=== PATIENT | male | born 1995 | race Caucasian/White ===

== ENCOUNTER 2016-12-24 20:28 | Emergency (ER) | payer BC ==
[~2016-12-24] VITALS: Ht 198.1 cm; Wt 127.2 kg
[~2016-12-24 20:28] MED LIST: FEXO1TAB58 PO
[2016-12-24 20:31] VITALS: Ht 198.1 cm; Wt 127.2 kg
--- NOTE | 2016-12-24 20:58 | EMERGENCY ROOM VISIT NOTE ---
ED Visit Note First contact with patient: 20:38 CHIEF COMPLAINT: Head injury HISTORY OF PRESENT ILLNESS: This 21-year-old male patient presented to the emergency department after receiving a head injury while playing rugby. He thinks that he collided with another player hitting the right forehead and his right cheek. There was no loss of consciousness. There has been no vomiting. The patient complains of feeling slightly spacey and emotional. The patient denies any significant headache or changes in vision. He denies any new neck pain. No other injuries. He is concerned because he has had numerous concussions in the past. REVIEW OF SYSTEMS: A review of systems was performed with positives and pertinent negatives listed in the history of present illness. All other systems were reviewed and are negative. ALLERGIES: No known drug allergies MEDICATIONS: Reviewed PMH: Asthma SOCIAL HISTORY: He does not use cigarettes or drink tobacco. He drinks alcohol on occasion. PHYSICAL EXAM: Vital Signs: Reviewed Nurse's notes, vital signs stable. GENERAL : 21-year-old male, in no acute distress, well-developed, well-nourished. NEURO : The patient is alert, oriented to person place and time, and coherent. Normal mini mental status exam. Negative Romberg and pronator drift. Cerebellar function intact. Normal heel to toe walking. HEAD: Slight abrasion noted to the right for head and inferior to the right eye.. EYES: Pupils are equal round and reactive to light and accommodation. EOMs are full. There is no swelling or discoloration of the tissue surrounding the eyes. EARS: External auditory canals clear without blood. NECK: Supple. There is no cervical spine tenderness. The patient does not have tenderness with movement of the neck. ED COURSE: I examined the patient. We discussed treatment options. We also thoroughly reviewed concussion precautions. The patient was discharged home in good condition ambulatory. DIAGNOSIS\discussion: Head injury Other etiologies considered were skull fracture, intracranial bleeding, facial fracture. Given his intact neurologic exam, mild symptoms and the fact that he did not lose consciousness, I had a low suspicion of fracture or bleed. I did not find imaging necessary. DISCHARGE INSTRUCTIONS: You have been treated in the Emergency Department for a Closed Head Injury. There were no abnormalities in your physical exam. Please call the concussion clinic for a follow-up appointment. A number has been provided. For pain control, you can use the following [id number] medicines (if >12 yo): - Regular strength (325mg/tab) Tylenol (acetaminophen) 2 tabs every 4-6 hours as needed. Do not exceed 12 tablets in a 24 hour period. Avoid taking more than 4 grams (4000 mg) of Tylenol per day. This includes any other sources of acetaminophen you may take on a regular basis. - Regular strength (200 mg/tab) Advil (ibuprofen) 1-2 tabs every 4-6 hours as needed. Do not exceed a dose of 3200 mg per day. You should relax in a quiet, dark place for the rest of the day. Avoid any possible triggers including: cigarette smoke, caffeine, nicotine, chocolate, wine, beer, loud noises or music, or bright lights. You should NOT return to athletic play until reevaluated. You should fully comply with their standard protocol regarding head injuries. Your Community Liaison OR Primary Care Provider will have the final say in your return to athletic play. This timeframe should be AT LEAST 1 week AFTER the date of last symptoms experienced! This is ESSENTIAL to allow for adequate brain healing time and for reduced risk of re-injury. Return to the Emergency Department if your current symptoms worsen despite treatment course outlined above, or if you develop any of the following symptoms : intractable pain despite aforementioned treatment course, visual disturbances , loss of vision, unilateral weakness or facial drooping, slurring of speech, loss of coordination, or loss of consciousness.
[2016-12-24 21:02] VITALS: BP 124/64; PULSE 77; TEMP 36.9; O2SAT 97
== END 2016-12-24 21:10 | disposition home or self-care (01) ==
LOC: C.EDB 20:31 → C.EDD 21:10
DX: S09.90XA Unspecified injury of head, initial encounter (principal); S00.81XA Abrasion of other part of head, initial encounter; W50.0XXA Accidental hit or strike by another person, initial encounter; Y93.63 Activity, rugby

== ENCOUNTER → 2017-01-25 | Outpatient (CLI) | payer BC | END | disposition home or self-care (01) | LOC: C.RDSM 13:50 | PROVIDERS: ATTEND Family Medicine | DX: M21.70 Unequal limb length (acquired), unspecified site (principal) ==

== ENCOUNTER 2021-06-12 15:44 | Inpatient (IN) ==
[2021-06-12] MEDS ORDERED: Heparin IV Adult Wt-Based Standard WITH Bolus Protocol IV STA (15:45)
--- NOTE | 2021-06-12 15:53 | Emergency Department Note ---
Impression & Plan Bilateral pulmonary embolism, Breath shortness ED Provider Note NAME: AGUSTIN STAPLES AGE: 26 SEX: M : 1995 ARRIVES VIA: Ambulance INFORMANT: Patient ED PROVIDER(S): Colin Nelson DO CHIEF COMPLAINT: Shortness of breath HPI: Patient is a 26-year-old male who presents to the ER for shortness of breath. He was seen evaluated at [facility]. He had a CT angio of the chest following an echo which showed bilateral PEs with echo showing right heart strain per Dr. Turner. Referred him over. He discussed with the hospitalist for admission. Patient notes has been feeling short of breath and rundown for the past 3 weeks. He went on a skiing trip about 2 weeks ago and symptoms have gotten worse. Denies any dysuria urgency or frequency. No other exacerbating or remitting factors. ROS: See above HPI for pertinent positives & negatives. A total of 10 systems reviewed and were otherwise negative. PAST MEDICAL HISTORY:See Below PAST SURGICAL HISTORY:See Below FAMILY HISTORY:See Below SOCIAL HISTORY:See Below HOME MEDICATIONS:See Below ALLERGIES:See Below VITALS:See Below PHYSICAL EXAMINATION: GENERAL: Sitting up in bed, alert, well appearing, well nourished, no distress, non-toxic EYE EXAM: normal conjunctiva. OROPHARYNX: no exudate, no erythema, lips, buccal mucosa, and tongue normal and mucous membranes are moist NECK: supple, no nuchal rigidity, no adenopathy, non-tender LUNGS: Clear to auscultation. Normal chest wall mechanics HEART: no murmurs, S1 normal and S2 normal ABDOMEN: abdomen soft, non-tender, normo-active bowel sounds, no masses, no rebound or guarding. UPPER EXTREMITIES: upper extremities are grossly normal. LOWER EXTREMITIES: No pitting edema. NEURO EXAM: Normal sensorium, cranial nerves II-XII grossly intact, normal speech, no gross weakness of arms, no gross weakness of legs. MEDICAL DECISION MAKING: Patient is a 26-year-old male who presents ER for above-stated complaint. IV was established blood work was obtained. CT angio of the chest is performed as an outpatient that showed bilateral PEs. Echo showed right heart strain all per report from Dr. Turner. Recommends no TPA at this time and heparin. No significant leukocytosis or anemia. He denies all bleeding risk factors. This discussed at length. He was ordered heparin bolus and drip. Labs showed no significant leukocytosis or anemia. INR was unremarkable. BMP with a slightly low CO2 of 20. Chloride slightly up at 108. Troponin was elevated 0.05. Lipase was unremarkable. Will defer to the hospitalist team as well and supervisor histology for any additional treatments. Triage Nursing notes reviewed. Limited review of prior medical records performed Vital Signs: reviewed and remarkable for no significant abnormalities Differential diagnosis: Differential diagnoses includes but is not limited to acute coronary syndrome, myocardial infarction, pericarditis, pulmonary embolus, aortic dissection, pneumonia, pneumothorax, musculoskeletal, shingles, esophageal. ER treatment provided: See below Diagnostics interpreted by me: ECG: Sinus rhythm rate of 90 Normal axis T wave inversion in the inferior leads as well as the septal anterior and lateral ST depressions in the inferior Cardiac Monitoring: An order was placed for continuous cardiac monitoring. The monitor shows a rate of 80 with sinus rhythm. Laboratory studies: As stated above and show below. Imaging studies: See below Consultation(s): D/w Dr. Turner as stated above Discussed with Yanelis who is aware the patient and saw the patient immediately upon arrival Procedures: none Critical Care: I have personally spent 32 minutes of critical care time in the direct management of this patient. This includes bedside care, interpretation of diagnostic studies, and testing, discussion with consultants, patient, and family members, and other required patient management activities. This 32 minutes is in excess of all separately billable procedures. Past Med/Surg History Medical History (Updated 06/12/21 @ 16:58 by Yanelis Feldman PA-C) Left leg cellulitis ARNOLDO on CPAP Surgical History (Updated 06/12/21 @ 16:16 by Yanelis Feldman PA-C) History of dental surgery wisdom teeth, jaw surg History of elbow surgery Family History (Updated 06/12/21 @ 16:15 by Yanelis Feldman PA-C) Grandfather Coronary heart disease Hx of CABG Denies family history of Clotting disorder Social History (Updated 06/12/21 @ 16:55 by Yanelis Feldman PA-C) Smoking Status: Never smoker Hx Alcohol Use: Yes Alcohol type: beer Alcohol Intake Frequency: 2-4 x/Month Hx Substance Use: No Preferred Language: Tunisian Communication Ability: Effective Director Community Organization Required: No Beliefs That Will Affect Care: None marital status: Current Living Situation: Alone current occupational status: employed 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 Feels Safe at Home: Yes Assistive Devices: None Allergies Allergies Allergy/AdvReac Type Severity Reaction Status Date / Time Pertussis Vaccines Allergy Unknown Unknown Verified 06/12/21 16:16 Home Meds Home Medications Medication Instructions Recorded Confirmed No Known Home Medications 06/12/21 06/12/21 Results & Data (ED) Vital Signs Vital Signs - 24 hr 06/12/21 15:54 Pulse Rate 82 Respiratory Rate 22 Blood Pressure 124/71 Blood Pressure Mean 88 Pulse Oximetry 97 Oxygen Delivery Method Room Air Sepsis Recent Fever Within 48 Hours No Sepsis New/Unexplained Change in Mental Status No Sepsis Action Taken by Nursing No Action Required Laboratory Data Result diagrams: 06/12/21 16:04 06/12/21 16:59 Lab Results 06/12/21 06/12/21 06/12/21 Range/Units 16:04 16:04 16:04 WBC 5.79 (4.8-10.8) K/uL RBC 5.30 (4.7-6.1) M/uL Hgb 16.3 (14.0-18.0) g/dL Hct 47.5 (42-52) % MCV 89.6 (80-100) fL MCH 30.8 (25-34) pg MCHC 34.3 (32-36) g/dL RDW Std Deviation 46.2 (36.4-46.3) fL RDW Coeff of Patricia 14.1 (11.5-14.5) % Plt Count 119 L (130-400) K/uL MPV 10.4 (7.4-10.4) fL Immature Gran % (Auto) 0.2 % Neut % (Auto) 46.3 % Lymph % (Auto) 32.1 % Summers % (Auto) 16.8 % Eos % (Auto) 4.1 % Baso % (Auto) 0.5 % Neut # (Auto) 2.68 (1.4-6.5) K/uL Lymph # (Auto) 1.86 (1.2-3.4) K/uL Summers # (Auto) 0.97 H (0.11-0.59) K/uL Eos # (Auto) 0.24 (0-0.5) K/uL Baso # (Auto) 0.03 (0-0.2) K/uL Immature Gran # (Auto) 0.01 (0.00-0.02) K/uL PT 11.4 (9.0-12.0) Seconds INR 1.1 (0.9-1.1) APTT (21.0-31.0) Seconds PTT Ratio Sodium 137 (136-145) mmol/L Potassium TNP Chloride 108 H (98-107) mmol/L Carbon Dioxide 20 L (21-32) mmol/L Anion Gap 9 (3-11) BUN 18 (6-23) mg/dl Creatinine 1.29 (0.6-1.4) mg/dl Est Cr Clr Drug Dosing 137.9 ml/min Est GFR ( Amer) 87.5 ml/min Est GFR (Non-Af Amer) 75.5 ml/min BUN/Creatinine Ratio 14.0 (10-20) Glucose 105 H (70-99(Fasting)) mg/dl Calcium 9.0 (8.5-10.1) mg/dl Total Bilirubin 0.5 (0.2-1.0) mg/dl AST TNP ALT 22 (7-52) U/L Alkaline Phosphatase 67 (34-104) U/L Troponin I 0.05 H* (0-0.04) ng/ml Total Protein 6.7 (6.0-8.3) gm/dl Albumin 4.0 (3.4-5.0) gm/dl Globulin 2.7 (2.5-4.0) gm/dl Albumin/Globulin Ratio 1.5 (0.9-2) Lipase 15 (11-82) U/L // Range/Units 16:04 WBC (4.8-10.8) K/uL RBC (4.7-6.1) M/uL Hgb (14.0-18.0) g/dL Hct (42-52) % MCV (80-100) fL MCH (25-34) pg MCHC (32-36) g/dL RDW Std Deviation (36.4-46.3) fL RDW Coeff of Patricia (11.5-14.5) % Plt Count (130-400) K/uL MPV (7.4-10.4) fL Immature Gran % (Auto) % Neut % (Auto) % Lymph % (Auto) % Summers % (Auto) % Eos % (Auto) % Baso % (Auto) % Neut # (Auto) (1.4-6.5) K/uL Lymph # (Auto) (1.2-3.4) K/uL Summers # (Auto) (0.11-0.59) K/uL Eos # (Auto) (0-0.5) K/uL Baso # (Auto) (0-0.2) K/uL Immature Gran # (Auto) (0.00-0.02) K/uL PT (9.0-12.0) Seconds INR (0.9-1.1) APTT 29.6 (21.0-31.0) Seconds PTT Ratio 1.1 Sodium (136-145) mmol/L Potassium Chloride (98-107) mmol/L Carbon Dioxide (21-32) mmol/L Anion Gap (3-11) BUN (6-23) mg/dl Creatinine (0.6-1.4) mg/dl Est Cr Clr Drug Dosing ml/min Est GFR ( Amer) ml/min Est GFR (Non-Af Amer) ml/min BUN/Creatinine Ratio (10-20) Glucose (70-99(Fasting)) mg/dl Calcium (8.5-10.1) mg/dl Total Bilirubin (0.2-1.0) mg/dl AST ALT (7-52) U/L Alkaline Phosphatase (34-104) U/L Troponin I (0-0.04) ng/ml Total Protein (6.0-8.3) gm/dl Albumin (3.4-5.0) gm/dl Globulin (2.5-4.0) gm/dl Albumin/Globulin Ratio (0.9-2) Lipase (11-82) U/L Administered Medications Heparin Sodium/Dextrose (Heparin Sodium/Dextrose) 25,000 units in 500 mls @ 41 mls/hr IV .[id number] [facility]; Protocol Stop: 07/12/21 15:59 Last Admin: 06/12/21 16:45 Dose: 2,050 units/hr, 41 mls/hr Documented by: [id number] Cosigned by: [id number] Discontinued Medications Heparin Sodium (Porcine) (Heparin Sod (Porcine) 1000 Unit/Ml) 1 units IV NOW ONE Stop: 06/12/21 16:01 Last Admin: 06/12/21 16:44 Dose: 5,000 units Documented by: [id number] Cosigned by: [id number] Discharge Plan Visit Data Chief Complaint: Shortness of Breath/Dyspnea Stated Complaint: SOB/PEs ED Provider: Colin Nelson Discharge Problem: Bilateral pulmonary embolism, Breath shortness Discharge Instructions Interventions: ED Discharge Assessment Last Done: 06/12/21 18:35
[2021-06-12] MEDS ORDERED: HEPARIN SOD (PORCINE) 1000 UNIT/ML IV ONE (16:00)
[2021-06-12] MEDS ORDERED: Heparin IV Adult Wt-Based Standard WITH Bolus Protocol IV SCH (16:15)
[2021-06-12 16:17] LABS: Basophils # (auto) 0.03 K/uL (0-0.2); Basophils % (auto) 0.5 %; Eosinophils # (auto) 0.24 K/uL (0-0.5); Eosinophils % (auto) 4.1 %; Hematocrit (blood only) 47.5 % (42-52); Hemoglobin 16.3 g/dL (14.0-18.0); Immature Granulocytes # (auto) 0.01 K/uL (0.00-0.02); Immature Granulocytes % (auto) 0.2 %; Lymphocytes # (auto) 1.86 K/uL (1.2-3.4); Lymphocytes % (auto) 32.1 %; Mean Corpuscular Hemoglobin 30.8 pg (25-34); Mean Corpuscular Hgb Conc 34.3 g/dL (32-36); Mean Corpuscular Volume 89.6 fL (80-100); Mean Platelet Volume 10.4 fL (7.4-10.4); Monocytes # (auto) 0.97 K/uL (0.11-0.59); Monocytes % (auto) 16.8 %; Neutrophils # (auto) 2.68 K/uL (1.4-6.5); Neutrophils % (auto) 46.3 %; Platelet Count 119 K/uL (130-400); RDW Coefficient of Variation 14.1 % (11.5-14.5); RDW Standard Deviation 46.2 fL (36.4-46.3); White Blood Count 5.79 K/uL (4.8-10.8)
--- NOTE | 2021-06-12 16:19 | History & Physical Report ---
Date of Service June 12, 2021 Assessment & Plan (1) Bilateral pulmonary embolism: (2) Elevated troponin: (3) ARNOLDO on CPAP: Plan: This is a 26-year-old male who has significant past medical history for mild ARNOLDO recently started on CPAP who presents to ED at the referral of cardiology due to newly diagnosed acute bilateral PEs with right heart strain. Bilateral Pulmonary Embolism Severe Pulmonary HTN Right Heart Strain Elevated troponin admit to PCU IV Heparin bolus and gtt, transition to oral anticoagulation when able based off insurance hypercoag panel ordered Echocardiogram done as outpt: EF 55 to 59%, right ventricular cavity is severely dilated, severe diffuse right ventricular hypokinesis with sparing of the right ventricular apex, dilated IVC with reduced collapsibility, severe pulmonary hypertension, left ventricular cavity is D-shaped due to increased consistent with right ventricular pressure/volume overload, severe tricuspid regurgitation, PASP 70 to 75 mmHg Cycle troponins, repeat ekg b/l venous dopplers ordered Cardiology Dr. Beard recommends repeat echocardiogram and EKG in 1 month for comparison Thrombocytopenia plt 119, will need to monitor closely while on heparin ARNOLDO on CPAP cpap at HS DVT ppx: IV heparin Dispo:PCU PCP: Tania Mabry FULL CODE Pt was seen and examined in collaboration with Dr. Park, please see addendum History of Present Illness Chief Complaint: Referred by cardiology due to acute PE Primary Care Provider: Rhea Mabry This is a 26-year-old male who has significant past medical history for mild ARNOLDO recently started on CPAP who presents to ED at the referral of cardiology due to newly diagnosed acute bilateral PEs with right heart strain. Of significance patient was seen and evaluated by his PCP today due to progressive dyspnea on exertion. He was found to have abnormal EKG and was referred over to cardiology for an acute appointment. He recently was in [facility] approximately 2 weeks ago for a ski trip. He states it was approximately 6 hours away. Since returning from trip he had noted progressive dyspnea with exertion. Over the last 3 days he has noticed significant shortness of breath even with minimal exertion. 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 Given his recent travel and EKG findings arrangements were made for patient undergo a stat CTA as well as echocardiogram. CT revealed large mom multiple occlusive near occlusive bilateral segmental and subsegmental pulmonary emboli with evidence of right heart strain. Echocardiogram in cardiology office revealed severe right ventricular chamber enlargement and severe right ventricular hypokinesis with sparing of the right ventricular apex. Severe tricuspid regurg is present. There was also flattening of interventricular septum with D-shaped septum consistent with right ventricular pressure overload. Severe pulmonary hypertension is present with estimated pulmonary pressure of 70 mmHg. In ED he states he has had SOB on going for the last 3-4 weeks even before his ski trip. He feels it started before that. Sx have been worsening the past 3 days. He states normally when skiing he has not difficulty but recently was significantly SOB. He associated it to being out of shape. He denies any recent illness. He did have nausea, lightheaded/dizzy, Post nasal drip and mild nonproductive cough the past 3 days which is what prompted him to seek PCP. He also complains of being fatigued. He denies f/c/s, syncope, chest pain, hemoptysis, Emesis, diarrhea, melena or change in urination. He denies any prior history of DVT.He denies any family history of clotting disorders. He denies any issuse with bleeding. Grandfather had bypass surgery. Allergies Allergy/AdvReac Type Severity Reaction Status Date / Time Pertussis Vaccines Allergy Unknown Unknown Verified 06/12/21 16:16 Home Medications Medication Instructions Recorded Confirmed Type No Known Home Medications 06/12/21 06/12/21 History Past Med/Surg History Medical History Left leg cellulitis ARNOLDO on CPAP Surgical History History of dental surgery wisdom teeth, jaw surg History of elbow surgery Family History Grandfather Coronary heart disease Hx of CABG Denies family history of Clotting disorder Social History Smoking Status: Never smoker Hx Alcohol Use: Yes Alcohol type: beer Alcohol Intake Frequency: 2-4 x/Month Hx Substance Use: No Preferred Language: Chinese Communication Ability: Effective Satellite Television Installer Required: No Beliefs That Will Affect Care: None marital status: Current Living Situation: Alone current occupational status: employed 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 Normal insp/exp effort, no accessory muscle use Cardiovascular: RRR, no murmur, no edema Vessels: no JVD or carotid bruit Chest: normal inspection of chest Abdomen: normal bowel sounds, soft, nontender, no hepatosplenomegaly Musculoskeletal: no cyanosis or clubbing, extremities motor strength 5/5 Skin: no rashes, warm and dry normal turgor Neurologic: PERRL, EOMI, accommodation nl, no face palsy, no dysarthria CN's II-XI intact bilaterally and moves all extremities Psychiatric: A+Ox3, euthymic affect Lymphatic: no cervical or axillary lymphadenopathy : deferred Results & Data Results & Data ([facility]) Vital Signs (Past 12 Hours) Vital Signs Pulse Resp BP Pulse Ox 82 22 124/71 97 06/12/21 15:54 06/12/21 15:54 06/12/21 15:54 06/12/21 15:54 Diagnostic Findings Echo: Dictated by Dr. Beard in [facility] The patient's echocardiogram reveals severe right ventricular chamber enlargement and severe right ventricular hypokinesis with sparing of the right ventricular apex. Severe tricuspid regurgitation is present. There is flattening of the interventricular septum with D-shaped septum consistent with right ventricular pressure overload state. CTA Chest Outpt [facility] IMPRESSIONIMPRESSION1. Multiple large occlusive and near occlusive bilateral segmental and subsegmental pulmonary emboli.2. Straightening of the interventricular septum suggestive of right heart strain. Medications Administered Home Medications Medication Instructions Recorded Confirmed No Known Home Medications 06/12/21 06/12/21 Medication List Heparin Sodium/Dextrose (Heparin Sodium/Dextrose) 25,000 units in 500 mls @ 41 mls/hr IV .[id number] [facility]; Protocol Stop: 07/12/21 15:59 Last Admin: 06/12/21 16:45 Dose: 2,050 units/hr, 41 mls/hr Documented by: [id number] Cosigned by: [id number] Discontinued Medications Heparin Sodium (Porcine) (Heparin Sod (Porcine) 1000 Unit/Ml) 1 units IV NOW ONE Stop: 06/12/21 16:01 Last Admin: 06/12/21 16:44 Dose: 5,000 units Documented by: [id number] Cosigned by: [id number] ECG Rhythm: normal sinus Findings: + T-wave inversion (inferior, septal, lateral) COVID-19 Results Results COVID-19 Adm Lab Results: RBC 5.30 M/uL (4.7-6.1) 06/12/21 WBC 5.79 K/uL (4.8-10.8) 06/12/21 Hgb 16.3 g/dL (14.0-18.0) 06/12/21 Hct 47.5 % (42-52) 06/12/21 Plt Count 119 K/uL (130-400) L 06/12/21 Neutrophils (%) (Auto) 46.3 % 06/12/21 Lymphocytes (%) (Auto) 32.1 % 06/12/21 Monocytes # (Auto) 0.97 K/uL (0.11-0.59) H 06/12/21 Eosinophils # (Auto) 0.24 K/uL (0-0.5) 06/12/21 Immature Granulocyte % (Auto) 0.2 % 06/12/21 Neutrophils # (Auto) 2.68 K/uL (1.4-6.5) 06/12/21 Lymphocytes # (Auto) 1.86 K/uL (1.2-3.4) 06/12/21 Monocytes # (Auto) 0.97 K/uL (0.11-0.59) H 06/12/21 Eosinophils # (Auto) 0.24 K/uL (0-0.5) 06/12/21 Basophils # (Auto) 0.03 K/uL (0-0.2) 06/12/21 Immature Granulocyte # (Auto) 0.01 K/uL (0.00-0.02) 06/12/21 Na 137 mmol/L (136-145) 06/12/21 K 4.1 mmol/L (3.5-5.1) 06/12/21 Cl 108 mmol/L (98-107) H 06/12/21 CO2 20 mmol/L (21-32) L 06/12/21 Anion Gap 9 (3-11) 06/12/21 BUN 18 mg/dl (6-23) 06/12/21 Creatinine 1.29 mg/dl (0.6-1.4) 06/12/21 BUN/Creatinine Ratio 14.0 (10-20) 06/12/21 Glucose Level 105 mg/dl (70-99(Fasting)) H 06/12/21 Ca 9.0 mg/dl (8.5-10.1) 06/12/21 Total Bilirubin 0.5 mg/dl (0.2-1.0) 06/12/21 AST/SGOT 26 U/L (13-39) 06/12/21 ALT/SGPT 22 U/L (7-52) 06/12/21 Alkaline Phosphatase 67 U/L (34-104) 06/12/21 Total Protein 6.7 gm/dl (6.0-8.3) 06/12/21 Albumin 4.0 gm/dl (3.4-5.0) 06/12/21 Globulin 2.7 gm/dl (2.5-4.0) 06/12/21 Albumin/Globulin Ratio 1.5 (0.9-2) 06/12/21 Troponin I 0.05 ng/ml (0-0.04) H* 06/12/21 PTT 29.6 Seconds (21.0-31.0) 06/12/21 INR 1.1 (0.9-1.1) 06/12/21 SARS-CoV-2, RNA, NAAT NEGATIVE (NEGATIVE) 06/12/21 Code Status & VTE Plan Code Status FULL CODE VTE Prophylaxis Plan VTE Prophylaxis will be ordered: No Supervising Physician Co-Signing Physician Notes Patient is a 26-year-old male with history of obstructive sleep apnea on CPAP and no other significant medical history who was evaluated by cardiology today and was diagnosed to have acute bilateral pulmonary embolism with right heart strain presents to ED for further evaluation. Patient admits to having dyspnea on exertion and fatigue which has been gradually worsening over the past 3 days. Patient admits to having a trip to [facility] 2 weeks ago. Patient had CTA and echocardiogram as outpatient which was suggestive of multiple occlusion to near occlusive bilateral segmental and subsegmental pulmonary emboli with evidence of right heart strain. Please review HPI for complete details of presentation.) History of thrombocytopenia 119K, glucose 105, troponin 0 0.05. On exam patient is obese, no apparent distress, normocephalic atraumatic, EOMI, normal breath sounds, clear to auscultation, S1-S2, no murmur, no peripheral edema, abdomen soft, nontender, normal bowel sounds, alert, awake, oriented, grossly no focal deficits. Patient is admitted for management of acute bilateral embolism. Severe pulmonary hypertension with right heart strain noted. Agree with starting on IV heparin. Hypercoagulable work-up ordered. Trend cardiac enzymes and repeat EKG in the morning. Check venous Dopplers to rule out DVT. Monitor for any bleeding issues. Continue CPAP for obstructive sleep apnea. Needs follow-up with cardiology upon discharge with repeat echocardiogram in 1 month. Currently saturating well on room air. I personally reviewed the record. Patient is interviewed and examined at bedside. Patient's care is coordinated with Yanelis Feldman PA-C. Please refer to the documentation above for details of patient's presentation and for discussion of other issues.
[2021-06-12 16:26] LABS: INR 1.1 (0.9-1.1); Prothrombin Time 11.4 Seconds (9.0-12.0)
[2021-06-12 16:42] LABS: Alanine Aminotransferase 22 U/L (7-52); Albumin Globulin Ratio 1.5 (0.9-2); Alkaline Phosphatase 67 U/L (34-104); Anion Gap 9 (3-11); Bilirubin,Total 0.5 mg/dl (0.2-1.0); Blood Urea Nitrogen 18 mg/dl (6-23); Carbon Dioxide 20 mmol/L (21-32); Chloride 108 mmol/L (98-107); Creatinine Clr Calc Pharmacy 137.9 ml/min; Est GFR (African American) 87.5 ml/min; Est GFR (Non-African American) 75.5 ml/min; Globulin 2.7 gm/dl (2.5-4.0); Glucose 105 mg/dl (70-99(Fasting)); Lipase 15 U/L (11-82); Sodium 137 mmol/L (136-145); Total Protein 6.7 gm/dl (6.0-8.3); Troponin I 0.05 ng/ml (0-0.04)
[2021-06-12] MEDS: HEPARIN SODIUM/DEXTROSE 25,000 UNITS/500 ML BAG IV SCH (16:45)
[2021-06-12 17:02] LABS: Partial Thromboplastin Ratio 1.1; Partial Thromboplastin Time 29.6 Seconds (21.0-31.0)
[2021-06-12 17:51] LABS: Potassium 4.1 mmol/L (3.5-5.1)
--- NOTE | 2021-06-12 21:04 | Ultrasound Report ---
US venous doppler LE BI CLINICAL HISTORY: r/o dvt COMPARISON: None available at the time of this dictation. TECHNIQUE: Bilateral lower extremity real-time compression venous ultrasound with Color Doppler imagi ng. Utilizing real-time ultrasonic imaging multiple real time high-resolution ultrasonic images with comp ression and noncompression maneuvers of the deep venous system in addition to color doppler imaging w ere performed from the common femoral vein through the proximal calf veins. FINDINGS: There is a deep venous thrombus in the left popliteal vein. No additional thrombus is seen in the [place] ous system. Impression: No evidence of deep venous thrombus. ACT 112: Negative or not required by law. Electronically signed by: Aldo Toscano M.D. 06/12/2021 9:03 PM
[2021-06-12] MEDS ORDERED: POLYETHYLENE (MIRALAX) 17 GM PACK PO PRN (21:42)
[2021-06-12] MEDS ORDERED: ONDANSETRON INJ 2 MG/ML 2 ML VIAL IV PRN (21:42)
[2021-06-12] MEDS ORDERED: MAGNESIUM HYDROXIDE SUSP 30 ML UDC PO PRN (21:42)
[2021-06-12] MEDS ORDERED: ALBUTEROL HFA 8 GM INHALER INH PRN (21:42)
[2021-06-12] MEDS ORDERED: ACETAMINOPHEN 325 MG TAB PO PRN (21:42)
[2021-06-12] MEDS ORDERED: ALUMINUM/MAGNESIUM SUSP 30 ML UDC PO PRN (21:42)
[2021-06-13 00:41] LABS: Partial Thromboplastin Ratio 4.1
[2021-06-13 00:48] LABS: Partial Thromboplastin Time 112.4 Seconds (21.0-31.0)
[2021-06-13] MEDS: HEPARIN SODIUM/DEXTROSE 25,000 UNITS/500 ML BAG IV SCH ×3 (06:38→21:03)
[2021-06-13 08:48] LABS: Basophils # (auto) 0.03 K/uL (0-0.2); Basophils % (auto) 0.5 %; Eosinophils # (auto) 0.28 K/uL (0-0.5); Hematocrit (blood only) 46.8 % (42-52); Hemoglobin 15.9 g/dL (14.0-18.0); Immature Granulocytes # (auto) 0.01 K/uL (0.00-0.02); Immature Granulocytes % (auto) 0.2 %; Lymphocytes # (auto) 1.99 K/uL (1.2-3.4); Lymphocytes % (auto) 35.3 %; Mean Corpuscular Hemoglobin 30.5 pg (25-34); Mean Corpuscular Volume 89.8 fL (80-100); Mean Platelet Volume 10.8 fL (7.4-10.4); Monocytes # (auto) 0.68 K/uL (0.11-0.59); Monocytes % (auto) 12.1 %; Neutrophils # (auto) 2.65 K/uL (1.4-6.5); Neutrophils % (auto) 46.9 %; Platelet Count 120 K/uL (130-400); RDW Coefficient of Variation 14.1 % (11.5-14.5); RDW Standard Deviation 46.4 fL (36.4-46.3); Red Blood Count 5.21 M/uL (4.7-6.1); White Blood Count 5.64 K/uL (4.8-10.8)
[2021-06-13 09:11] LABS: Partial Thromboplastin Ratio 2.7
[2021-06-13 09:15] LABS: Troponin I < 0.03 ng/ml (0-0.04)
[2021-06-13 09:20] LABS: Anion Gap 7 (3-11); BUN Creatinine Ratio 17.2 (10-20); Blood Urea Nitrogen 21 mg/dl (6-23); Calcium 8.1 mg/dl (8.5-10.1); Carbon Dioxide 21 mmol/L (21-32); Chloride 108 mmol/L (98-107); Creatinine Clr Calc Pharmacy 145.2 ml/min; Est GFR (African American) 93.6 ml/min; Est GFR (Non-African American) 80.8 ml/min; Glucose 89 mg/dl (70-99(Fasting)); Sodium 136 mmol/L (136-145)
[2021-06-13 09:26] LABS: Partial Thromboplastin Time 73.9 Seconds (21.0-31.0)
--- NOTE | 2021-06-13 13:54 | Pulmonary Consultation ---
Date of Consultation June 13, 2021 History of Present Illness Attending Physician: Luis Grace MD History of Present Illness Boo is a 26 year old man with a history of ARNOLDO (on nightly CPAP) who was sent to the hospital by his PCP after a CT chest revealed a bilateral pulmonary embolism with right heart strain. Prior to presentation he'd complained of progressively worsening dyspnea on exertion x3 days. Positive risk factors included recent period of stasis ([address] trip), ARNOLDO and obesity. He also recently tested positive for COVID-19. Echo and venous LE doppler were negative for DVT, OH etc. Troponin was mildly elevated and downtrended immediately after. Today, he recalls first feeling more fatigued than usual 4-6 weeks ago during sex. 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 Allergies Allergy/AdvReac Type Severity Reaction Status Date / Time Pertussis Vaccines Allergy Unknown Unknown Verified 06/13/21 07:02 Home Medications Medication Instructions Recorded Confirmed Type No Known Home Medications 06/12/21 06/12/21 History Patient History Medical History (Updated 06/13/21 @ 13:57 by Juan Valladares MD) Left leg cellulitis ARNOLDO on CPAP Pulmonary hypertension Surgical History (Updated 06/13/21 @ 07:02 by Maru Zavala) History of dental surgery wisdom teeth, jaw surg History of elbow surgery Family History (System 06/13/21 @ 07:02 by Maru Zavala) Grandfather Coronary heart disease Hx of CABG Denies family history of Clotting disorder Social History (System 06/13/21 @ 07:02 by Maru Zavala) Smoking Status: Never smoker Hx Alcohol Use: Yes Alcohol type: beer Alcohol Intake Frequency: 2-4 x/Month Hx Substance Use: No Preferred Language: Cymro Communication Ability: Effective 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) Vital Signs (Past 12 Hours) Vital Signs Temp Pulse Pulse Resp BP Pulse Ox 06/13/21 10:48 36.4 C L 75 18 104/62 96 06/13/21 09:00 74 06/13/21 08:16 36.4 C L 75 18 107/68 93 06/13/21 03:20 37 C 79 18 112/69 93
--- NOTE | 2021-06-13 14:06 | Pulmonary Consultation ---
Date of Consultation June 13, 2021 Assessment & Plan (1) Bilateral pulmonary embolism: (2) Pulmonary hypertension: (3) ARNOLDO on CPAP: 26-year-old male with a past medical history of obesity and ARNOLDO found to have bilateral pulmonary embolism and ultimately admitted to the hospital. Unclear whether this pulmonary embolism represents a provoked or unprovoked process. He notes symptoms began prior to his recent trip, but they became more severe in the last several days. He is stable on room air saturating 96%. Hemodynamic status is stable. He had a mild troponin elevation of 0.05 on admission with normalization soon after. proBNP was not checked. He denies any chest pain, syncope symptoms or dyspnea at rest. He does have evidence of pulmonary hypertension noted on outpatient echo. There is no indication for systemic thrombolysis at this time. Continue with heparin infusion and transition to oral anticoagulation in the next 2 to 3 days if he continues to demonstrate stability. Will need a repeat echocardiogram in the next 6 to 8 weeks to ensure normalization of his pulmonary artery pressures. Recommend outpatient hematology consultation to evaluate for hypercoagulable state. Initial work-up sent as an inpatient. Would recommend at least 6 months of anticoagulation therapy. There is a conflicting report on yesterday's lower extremity ultrasound indicating DVT in the left popliteal vein, but impression suggestive of no evidence of DVT. Will clarify with radiology. Thank you for the consultation. Please call with questions. History of Present Illness Reason for Consultation: Pulmonary embolism Attending Physician: Luis Grace MD History of Present Illness 26-year-old male with a past medical history of recently diagnosed ARNOLDO on CPAP who presented to the hospital due to increasing shortness of breath and identification of pulmonary embolism. He was seen by Dr. Johnny Boudreaux cardiology yesterday in the outpatient setting due to progressive shortness of breath. He notes that his shortness of breath started approximately 3 weeks ago. He was on a car trip for 6 hours to [facility] for a ski trip approximately 2 weeks ago. He notes that his shortness of breath began prior to this trip. Over the last couple days he has had increasing shortness of breath with minimal exertion and also increasing fatigue. 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 He denies any syncope or chest pain. He had an EKG as an outpatient which revealed a sinus rhythm with a heart rate of 96 bpm[address] He underwent a [address] chest as an outpatient in [facility] which I personally reviewed. CT revealed near occlusive bilateral segmental and subsegmental pulmonary emboli with heart strain. Echo revealed severe right ventricular chamber enlargement and hypokinesis with sparing of the right apex. Flattening of the intraventricular septum was noted. Pulmonary hypertension was seen with a pulmonary systolic pressure of 70 mmHg. Patient denies any clear history of frequent DVTs or pulmonary emboli in his family. He notes that his grandfather had heart disease and lung cancer. He does describe that his mother had several miscarriages, but does not know when these occurred or the related circumstances. He denies any history of lupus anticoagulant or hypercoagulable state in his family. Allergies Allergy/AdvReac Type Severity Reaction Status Date / Time Pertussis Vaccines Allergy Unknown Unknown Verified 06/13/21 07:02 Home Medications Medication Instructions Recorded Confirmed Type No Known Home Medications 06/12/21 06/12/21 History Patient History Medical History (Updated 06/13/21 @ 13:57 by Juan Valladares MD) Left leg cellulitis ARNOLDO on CPAP Pulmonary hypertension Surgical History (Updated 06/13/21 @ 07:02 by Maru Zavala) History of dental surgery wisdom teeth, jaw surg History of elbow surgery Family History (System 06/13/21 @ 07:02 by Maru Zavala) Grandfather Coronary heart disease Hx of CABG Denies family history of Clotting disorder Social History (System 06/13/21 @ 07:02 by Maru Zavala) Smoking Status: Never smoker Hx Alcohol Use: Yes Alcohol type: beer Alcohol Intake Frequency: 2-4 x/Month Hx Substance Use: No Preferred Language: Icelandic Communication Ability: Effective 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 Conjunctivae are normal. Anicteric sclera. Ears nose, mouth and throat: No facial deformities. Neck: Trachea is midline. Visual inspection is normal. Respiratory: Clear to auscultation bilaterally. No use of accessory muscles. No significant clubbing noted. Cardiovascular: Regular rate and rhythm. No murmurs. No edema. Gastrointestinal: Normal bowel sounds, soft, nontender and nondistended. No hepatosplenomegaly noted. Musculoskeletal: Patient is able to move all extremities. Strength is 5 out of 5 in the upper and lower extremities. Skin: No rashes, warm dry and intact. Neurologic: No obvious focal neurological deficits seen. Psychiatric: Alert and oriented x3 with a euthymic affect. Results & Data Results & Data ([facility]) Vital Signs (Past 12 Hours) Vital Signs Temp Pulse Pulse Resp BP Pulse Ox 06/13/21 10:48 36.4 C L 75 18 104/62 96 06/13/21 09:00 74 06/13/21 08:16 36.4 C L 75 18 107/68 93 06/13/21 03:20 37 C 79 18 112/69 93 PG Care Time/CCT Total # of Minutes Spent Total Time Spent with Patient: Total time spent is greater than 50% in coordination of care (as documented) at patient's floor/unit and/or counseling patient: Coding Level of Care Code 52356 Inpt Consult Level 4 Diagnoses Bilateral pulmonary embolism I26.99 Pulmonary hypertension I27.20 ARNOLDO on CPAP G47.33; Z99.89
[2021-06-13] MEDS: valACYclovir HCL 500 MG TABLET PO SCH ×2 (14:21→20:54)
--- NOTE | 2021-06-13 15:26 | Hospitalist Progress Note ---
Date of Service June 13, 2021 Assessment & Plan (1) Bilateral pulmonary embolism: Plan: This is a 26-year-old male who has significant past medical history for mild ARNOLDO recently started on CPAP who presents to ED at the referral of cardiology due to newly diagnosed acute bilateral PEs with right heart strain. Acute Bilateral Pulmonary Embolism, likely Unprovoked PE Right Heart Strain Severe Pulmonary HTN Left Popliteal Vein DVT patient was having dyspnea even before trip to [place] Echocardiogram done as outpt: EF 55 to 59%, right ventricular cavity is severely dilated, severe diffuse right ventricular hypokinesis with sparing of the right ventricular apex, dilated IVC with reduced collapsibility, severe pulmonary hypertension, left ventricular cavity is D-shaped due to increased consistent with right ventricular pressure/volume overload, severe tricuspid regurgitation, PASP 70 to 75 mmHg Doppler US: There is a deep venous thrombus in the left popliteal vein. BP stable, 90% O2 sat on room air troponin 0.05 to 0.04 continue IV heparin until tomorrow likely transition to NOAC on Wednesday ff up hypercoagulable work up will need Hematology referral repeat Echo in 4 weeks Thrombocytopenia plt 119 --> 120 monitor ARNOLDO on CPAP cpap at HS Disposition possible d/c on Wednesday with NOAC Admission and Anticipated Discharge Date Admission Date: June 12, 2021 Subjective ff up for acute bilateral PE, etc seen resting in bed, comfortable on room air states he feels somewhat improved compared to yesterday still feels tired no chest pain, shortness of breath, dizziness, palpitations no bleeding has not ambulated much in his room yet no other symptoms Review of Systems Review of Systems: all noted and negative except for above Physical Exam Physical Exam: General- oriented x 3, not in distress, speaks in sentences with no effort or accessory muscle use Head- atraumatic (+) small rash on the right forehead Eyes- PERRL, EOMI, anicteric ENT- oropharynx clear Neck- supple, no JVD, no adenopathy, no thyromegaly; carotids +2/2, no bruits appreciated Lungs- clear to auscultation bilaterally, no rales/wheezes Heart- normal rate, regular rhythm; no murmur, no gallop, no rub appreciated Abdomen- normal bowel sounds, nondistended, soft, nontender, no masses or hepatosplenomegaly Extremities- no pretibial edema, no calf tenderness; peripheral pulses intact Neuro- alert, oriented x 3; CN 2-12 grossly intact; motor 5/5 bilaterally;sensation 100% on all extremities; no other gross focal neurologic deficits Skin- warm & dry Results & Data Results & Data ([facility]) Vital Signs (Past 12 Hours) Vital Signs Temp Pulse Pulse Resp BP Pulse Ox 06/13/21 10:48 36.4 C L 75 18 104/62 96 06/13/21 09:00 74 06/13/21 08:16 36.4 C L 75 18 107/68 93 all noted and reviewed including below
[2021-06-13 15:41] LABS: Partial Thromboplastin Ratio 2.5
[2021-06-13 15:52] LABS: Partial Thromboplastin Time 69.8 Seconds (21.0-31.0)
--- NOTE | 2021-06-13 19:09 | Electrocardiogram Report ---
Test Reason : Blood Pressure : / mmHG Vent. Rate : 090 BPM Atrial Rate : 090 BPM P-R Int : 118 ms QRS Dur : 084 ms QT Int : 394 ms P-R-T Axes : 077 092 -29 degrees QTc Int : 481 ms Normal sinus rhythm Rightward axis T wave abnormality, consider inferior ischemia T wave abnormality, consider anterolateral ischemia Prolonged QT Abnormal ECG No previous ECGs available Confirmed by Andreas Henson ([id number]) on 06/13/2021 7:08:53 PM Referred By: REFERRED SELF Confirmed By:Ronaldo Henson
[2021-06-13 23:16] LABS: Partial Thromboplastin Time 54.6 Seconds (21.0-31.0)
[2021-06-14 06:28] LABS: Basophils # (auto) 0.03 K/uL (0-0.2); Basophils % (auto) 0.6 %; Eosinophils # (auto) 0.33 K/uL (0-0.5); Eosinophils % (auto) 6.4 %; Hematocrit (blood only) 46.3 % (42-52); Hemoglobin 16.1 g/dL (14.0-18.0); Immature Granulocytes # (auto) 0.01 K/uL (0.00-0.02); Immature Granulocytes % (auto) 0.2 %; Lymphocytes # (auto) 2.38 K/uL (1.2-3.4); Lymphocytes % (auto) 46.5 %; Mean Corpuscular Hemoglobin 30.8 pg (25-34); Mean Corpuscular Hgb Conc 34.8 g/dL (32-36); Mean Corpuscular Volume 88.7 fL (80-100); Mean Platelet Volume 10.8 fL (7.4-10.4); Monocytes # (auto) 0.62 K/uL (0.11-0.59); Monocytes % (auto) 12.1 %; Neutrophils # (auto) 1.75 K/uL (1.4-6.5); Neutrophils % (auto) 34.2 %; Platelet Count 121 K/uL (130-400); RDW Coefficient of Variation 13.8 % (11.5-14.5); RDW Standard Deviation 44.9 fL (36.4-46.3); Red Blood Count 5.22 M/uL (4.7-6.1); White Blood Count 5.12 K/uL (4.8-10.8)
[2021-06-14 06:54] LABS: BUN Creatinine Ratio 17.1 (10-20); Creatinine Clr Calc Pharmacy 160.2 ml/min; Est GFR (African American) 104.9 ml/min; Est GFR (Non-African American) 90.5 ml/min; Potassium 3.8 mmol/L (3.5-5.1)
[2021-06-14 07:41] LABS: Partial Thromboplastin Ratio 2.4
[2021-06-14 07:44] LABS: Partial Thromboplastin Time 64.9 Seconds (21.0-31.0)
[2021-06-14] MEDS: valACYclovir HCL 500 MG TABLET PO SCH ×3 (08:24→20:51)
[2021-06-14] MEDS: HEPARIN SODIUM/DEXTROSE 25,000 UNITS/500 ML BAG IV SCH ×2 (09:37→14:27)
--- NOTE | 2021-06-14 16:40 | Hospitalist Progress Note ---
Date of Service June 14, 2021 Assessment & Plan (1) Bilateral pulmonary embolism: Plan: This is a 26-year-old male who has significant past medical history for mild ARNOLDO recently started on CPAP who presents to ED at the referral of cardiology due to newly diagnosed acute bilateral PEs with right heart strain. Acute Bilateral Pulmonary Embolism, likely Unprovoked PE Bilateral pulmonary embolism with acute cor pulmonale in the setting of left popliteal DVT Right Heart Strain Severe Pulmonary HTN patient was having dyspnea even before trip to [place] Echocardiogram done as outpt: EF 55 to 59%, right ventricular cavity is severely dilated, severe diffuse right ventricular hypokinesis with sparing of the right ventricular apex, dilated IVC with reduced collapsibility, severe pulmonary hypertension, left ventricular cavity is D-shaped due to increased consistent with right ventricular pressure/volume overload, severe tricuspid regurgitation, PASP 70 to 75 mmHg Doppler US: There is a deep venous thrombus in the left popliteal vein. BP stable, 96% O2 sat on room air troponin 0.05 to 0.04 continue IV heparin until tomorrow transition to Eliquis ff up hypercoagulable work up will need Hematology referral repeat Echo in 4 weeks Thrombocytopenia plt 119 --> 121 monitor ARNOLDO on CPAP cpap at HS Disposition possible d/c tomorrow with NOAC plan of care discussed with patient and his in detail and at length all questions answered they are understanding, agreeable, comfortable with the plan of care Admission and Anticipated Discharge Date Admission Date: June 12, 2021 Subjective ff up for acute bilateral PE, etc seen resting in bed, comfortable states he feels about the same as yesterday ambulated in the hallways today- no dyspnea, chest pain, palpitations, dizziness no bleeding no other symptoms Review of Systems Review of Systems: all noted and negative except for above Physical Exam Physical Exam: General- oriented x 3, not in distress, speaks in sentences with no effort or accessory muscle use Head- small rash on the right forehead- the same Eyes- anicteric Neck- no JVD Lungs- clear breath sounds bilaterally, no crackles, no wheezing Heart- normal rate, regular rhythm; no murmurs Abdomen- normal bowel sounds, nondistended, soft, nontender Extremities- no pretibial edema, no calf tenderness Neuro- alert, oriented x 3; no gross focal neurologic deficits Skin- warm & dry Results & Data Results & Data ([facility]) Vital Signs (Past 12 Hours) Vital Signs Temp Pulse Resp BP Pulse Ox 06/14/21 11:47 36.6 C 75 16 122/54 L 96 06/14/21 08:18 36.5 C 61 18 111/54 L 92 all noted and reviewed including below
[2021-06-15] MEDS: HEPARIN SODIUM/DEXTROSE 25,000 UNITS/500 ML BAG IV SCH (04:55)
--- NOTE | 2021-06-15 06:23 | Electrocardiogram Report ---
Test Reason : Blood Pressure : / mmHG Vent. Rate : 058 BPM Atrial Rate : 058 BPM P-R Int : 122 ms QRS Dur : 090 ms QT Int : 502 ms P-R-T Axes : 049 100 -15 degrees QTc Int : 492 ms Sinus bradycardia Rightward axis Marked T wave abnormality, consider anterior ischemia T wave abnormality, consider inferior ischemia Prolonged QT Abnormal ECG When compared with ECG of 24-OCT-2014 14:31, ST no longer elevated in Anterior leads T wave inversion now evident in Inferior leads T wave inversion now evident in Anterior leads QT has lengthened Confirmed by Maikel Scherer ([id number]) on 06/15/2021 6:23:44 AM Referred By: REFERRED SELF Confirmed By:Maikel Scherer
[2021-06-15 07:18] LABS: Hematocrit (blood only) 46.5 % (42-52); Hemoglobin 15.9 g/dL (14.0-18.0); Mean Corpuscular Hemoglobin 30.5 pg (25-34); Mean Corpuscular Hgb Conc 34.2 g/dL (32-36); Mean Corpuscular Volume 89.1 fL (80-100); Mean Platelet Volume 10.9 fL (7.4-10.4); Platelet Count 121 K/uL (130-400); RDW Coefficient of Variation 13.6 % (11.5-14.5); RDW Standard Deviation 44.6 fL (36.4-46.3); Red Blood Count 5.22 M/uL (4.7-6.1)
[2021-06-15 07:40] LABS: Calcium 8.1 mg/dl (8.5-10.1); Creatinine Clr Calc Pharmacy 167.8 ml/min; Est GFR (African American) 110.9 ml/min; Est GFR (Non-African American) 95.7 ml/min; Potassium 3.8 mmol/L (3.5-5.1)
[2021-06-15 07:41] LABS: Basophils # (auto) 0.04 K/uL (0-0.2); Basophils % (auto) 0.8 %; Eosinophils % (auto) 5.7 %; Immature Granulocytes # (auto) 0.01 K/uL (0.00-0.02); Immature Granulocytes % (auto) 0.2 %; Lymphocytes # (auto) 2.83 K/uL (1.2-3.4); Lymphocytes % (auto) 53.4 %; Monocytes # (auto) 0.56 K/uL (0.11-0.59); Monocytes % (auto) 10.6 %; Neutrophils # (auto) 1.56 K/uL (1.4-6.5); Neutrophils % (auto) 29.3 %
[2021-06-15 07:50] LABS: Partial Thromboplastin Ratio 2.6
[2021-06-15 07:53] LABS: Partial Thromboplastin Time 72.4 Seconds (21.0-31.0)
[2021-06-15] MEDS: valACYclovir HCL 500 MG TABLET PO SCH (08:54)
[2021-06-15] MEDS ORDERED: APIXABAN 5 MG TABLET PO SCH (09:00)
--- NOTE | 2021-06-15 10:06 | Hospitalist Progress Note ---
Date of Service June 15, 2021 Assessment & Plan (1) Bilateral pulmonary embolism: Plan: This is a 26-year-old male who has significant past medical history for mild ARNOLDO recently started on CPAP who presents to ED at the referral of cardiology due to newly diagnosed acute bilateral PEs with right heart strain. Acute Bilateral Pulmonary Embolism, likely Unprovoked PE Bilateral pulmonary embolism with acute cor pulmonale in the setting of left popliteal DVT Right Heart Strain Severe Pulmonary HTN patient was having dyspnea even before trip to [place] Echocardiogram done as outpt: EF 55 to 59%, right ventricular cavity is severely dilated, severe diffuse right ventricular hypokinesis with sparing of the right ventricular apex, dilated IVC with reduced collapsibility, severe pulmonary hypertension, left ventricular cavity is D-shaped due to increased consistent with right ventricular pressure/volume overload, severe tricuspid regurgitation, PASP 70 to 75 mmHg Doppler US: There is a deep venous thrombus in the left popliteal vein. 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 consulted given IV heparin while admitted, transition to Eliquis 10mg x 7 days, then 5mg BID ff up results of hypercoagulable work up done while admitted will need Hematology referral repeat Echo in 4 weeks Thrombocytopenia plt 119 --> 121 monitor ARNOLDO on CPAP cpap at Disposition discharge home today ff up with PCP this week needs Hematology referral plan of care discussed with patient in detail and at length all questions answered he is understanding, agreeable, comfortable with the plan of care Admission and Anticipated Discharge Date Admission Date: June 12, 2021 Subjective ff up for acute BL PE etc seen resting in bed, comfortable in good spirits states he feels better overall no chest pain, dyspnea, palpitation, dizziness has mild cough- dry has mild L knee pain no bleeding no other symptoms states he is ready and would like to be discharged today Review of Systems Review of Systems: all noted and negative except for above Physical Exam Physical Exam: General- oriented x 3, not in distress, speaks in sentences with no effort or accessory muscle use Eyes- anicteric Neck- no JVD Lungs- clear breath sounds bilaterally no rales no wheezing Heart- normal rate, regular rhythm; no murmurs Abdomen- normal bowel sounds, nondistended, soft, nontender Extremities- no pretibial edema, no calf tenderness Neuro- alert, oriented x 3; no gross focal neurologic deficits Skin- warm & dry Results & Data Results & Data ([facility]) Vital Signs (Past 12 Hours) Vital Signs Temp Pulse Pulse Resp BP Pulse Ox 06/15/21 07:18 36.5 C 55 L 19 97/57 L 95 06/15/21 02:33 36.6 C 55 L 16 104/55 L 95 06/15/21 01:34 58 L all noted and reviewed including below
--- NOTE | 2021-06-15 11:46 | Discharge Summary ---
Date of Service June 15, 2021 Admission HPI Per Admitting Provider This is a 26-year-old male who has significant past medical history for mild ARNOLDO recently started on CPAP who presents to ED at the referral of cardiology due to newly diagnosed acute bilateral PEs with right heart strain. Of significance patient was seen and evaluated by his PCP today due to progressive dyspnea on exertion. He was found to have abnormal EKG and was referred over to cardiology for an acute appointment. He recently was in [facility] approximately 2 weeks ago for a ski trip. He states it was approximately 6 hours away. Since returning from trip he had noted progressive dyspnea with exertion. Over the last 3 days he has noticed significant shortness of breath even with minimal exertion. 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 Given his recent travel and EKG findings arrangements were made for patient undergo a stat CTA as well as echocardiogram. CT revealed large mom multiple occlusive near occlusive bilateral segmental and subsegmental pulmonary emboli with evidence of right heart strain. Echocardiogram in cardiology office revealed severe right ventricular chamber enlargement and severe right ventricular hypokinesis with sparing of the right ventricular apex. Severe tricuspid regurg is present. There was also flattening of interventricular septum with D-shaped septum consistent with right ventricular pressure overload. Severe pulmonary hypertension is present with estimated pulmonary pressure of 70 mmHg. In ED he states he has had SOB on going for the last 3-4 weeks even before his ski trip. He feels it started before that. Sx have been worsening the past 3 days. He states normally when skiing he has not difficulty but recently was significantly SOB. He associated it to being out of shape. He denies any recent illness. He did have nausea, lightheaded/dizzy, Post nasal drip and mild nonproductive cough the past 3 days which is what prompted him to seek PCP. He also complains of being fatigued. He denies f/c/s, syncope, chest pain, hemoptysis, Emesis, diarrhea, melena or change in urination. He denies any prior history of DVT.He denies any family history of clotting disorders. He denies any issuse with bleeding. Grandfather had bypass surgery. Admission Exam (Per Admitting) Constitutional Constitutional: WD/WN, vitals as above, NAD, sitting up in bed, pleasant, conversing easily Head: Normocephalic, Atraumatic Eyes: PERRL, conjunctivae normal, anicteric sclerae ENMT: external ear and nose normal, oropharynx normal Neck: trachea midline, no thyromegaly normal visual inspection Respiratory: normal respiratory effort, lungs clear to auscultation, no wheeze, rales, rhonchi. Normal insp/exp effort, no accessory muscle use Cardiovascular: RRR, no murmur, no edema Vessels: no JVD or carotid bruit Chest: normal inspection of chest Abdomen: normal bowel sounds, soft, nontender, no hepatosplenomegaly Musculoskeletal: no cyanosis or clubbing, extremities motor strength 5/5 Skin: no rashes, warm and dry normal turgor Neurologic: PERRL, EOMI, accommodation nl, no face palsy, no dysarthria CN's II-XI intact bilaterally and moves all extremities Psychiatric: A+Ox3, euthymic affect Lymphatic: no cervical or axillary lymphadenopathy : deferred Discharge Data Consultations 06/12/21 16:09 ED Decision to Admit Stat 06/13/21 08:36 Consult Pulmonology Routine Procedures Performed ADDENDUM There is a deep venous thrombus in the left popliteal vein. Electronically signed by: Aldo Toscano M.D. 06/13/2021 2:08 PM ADDENDUM END US venous doppler LE BI CLINICAL HISTORY: r/o dvt COMPARISON: None available at the time of this dictation. TECHNIQUE: Bilateral lower extremity real-time compression venous ultrasound with Color Doppler imaging. Utilizing real-time ultrasonic imaging multiple real time high-resolution ultrasonic images with compression and noncompression maneuvers of the deep venous system in addition to color doppler imaging were performed from the common femoral vein through the proximal calf veins. FINDINGS: There is a deep venous thrombus in the left popliteal vein. No additional thrombus is seen in the venous system. Impression: No evidence of deep venous thrombus. ACT 112: Negative or not required by law. Electronically signed by: Aldo Toscano M.D. 06/12/2021 9:03 PM Hospital Course (1) Bilateral pulmonary embolism: This is a 26-year-old male who has significant past medical history for mild ARNOLDO recently started on CPAP who presents to ED at the referral of cardiology due to newly diagnosed acute bilateral PEs with right heart strain. Acute Bilateral Pulmonary Embolism, likely Unprovoked PE Bilateral pulmonary embolism with acute cor pulmonale in the setting of left popliteal DVT Right Heart Strain Severe Pulmonary HTN patient was having dyspnea even before trip to [place] angio: Multiple large occlusive and near occlusive bilateral segmental and subsegmental pulmonary emboli. Straightening of the interventricular septum suggestive of right heart strain. Echocardiogram done as outpt: EF 55 to 59%, right ventricular cavity is severely dilated, severe diffuse right ventricular hypokinesis with sparing of the right ventricular apex, dilated IVC with reduced collapsibility, severe pulmonary hypertension, left ventricular cavity is D-shaped due to increased consistent with right ventricular pressure/volume overload, severe tricuspid regurgitation, PASP 70 to 75 mmHg Doppler US: There is a deep venous thrombus in the left popliteal vein. BP stable, 95% O2 sat on room air troponin 0.05 to 0.04 (normal) remained hemodynamically stable O2 Sats remained > 90% no hypoxia with ambulation has mild L knee pain - monitor [employer]. Valladares consulted no indication for thrombolysis given IV heparin while admitted, transition to Eliquis 10mg x 7 days, then 5mg BID will need at least 6 weeks of anticoagulation therapy ff up results of hypercoagulable work up done will need Hematology referral repeat Echo in 6 weeks to ensure normalization of pulmonary artery pressure Right Forehead Herpes Zoster Valtrex x 1 week Thrombocytopenia plt 119 --> 121 monitor ARNOLDO on CPAP cpap at HS Disposition discharge home today ff up with PCP this week needs Hematology referral plan of care discussed with patient in detail and at length all questions answered he is understanding, agreeable, comfortable with the plan of care
[2021-06-17 23:46] LABS: Anti Cardiolipin Ab IgG 7.8 GPL-U/mL; Anti Cardiolipin Ab IgM 9.5 MPL-U/mL; Anti-Thrombin III Activity 121 % normal (80-135); B2 Glycoprotein IgG 5.1 U/mL (<20.0); B2 Glycoprotein IgM 8.7 U/mL (<20.0); PTT LA Screen >200 sec (<=40); Protein S Functional(Activity) 118 % (70-150)
[2021-06-19 12:48] LABS: Lupus Hex Phase (Rflxdonotord) Negative (Negative)
== END 2021-06-15 13:41 | disposition home or self-care (01) | DRG 175 ==
LOC: ED 15:44 → SUATTDRO 16:07 → MERGE 16:07 → 2S 16:07 → UNDODISIN 06-15 12:23